=== PATIENT | male | born 1965 | race Caucasian/White ===

== ENCOUNTER 2018-02-19 08:29 | Day surgery (SDC) | payer BC ==
[~2018-02-19 08:29] MED LIST: Buffered Lidocaine 0.9% SYRIN* 5 ML/SYR SYRINGE INTRADERM ONE; Famotidine IV* 10 MG/ML 2 ML (20 mg) IV ONE; Metoclopramide TAB* 10 MG PO ONE
[2018-02-19] MEDS ORDERED: Famotidine IV* 10 MG/ML 2 ML (20 mg) ONE (08:40)
[2018-02-19] MEDS ORDERED: Metoclopramide TAB* 10 MG ONE (08:41)
[2018-02-19] MEDS ORDERED: Dexamethasone IV* 4 MG/ML 1 ML (4 MG) ONE (08:56)
[2018-02-19] MEDS ORDERED: Propofol* 10 MG/ML 20 ML BTL IV PUSH ONE (08:56)
[2018-02-19] MEDS ORDERED: Cisatracurium* 2 MG/ML MDV 5 ML ONE (08:56)
[2018-02-19] MEDS ORDERED: KETAMINE HCL* 50 MG/ML 10 ML VIAL ONE (08:56)
[2018-02-19] MEDS ORDERED: Midazolam* 1 MG/ML 5 ML VIAL (5 MG) ONE (08:56)
[2018-02-19] MEDS ORDERED: Lidocaine 2% PF * 5 ML VIAL ONE (08:56)
[2018-02-19] MEDS ORDERED: fentaNYL* 50 MCG/ML 2 ML VIAL (100 MCG VIAL) ONE (08:56)
[2018-02-19] MEDS ORDERED: Ketorolac INJ* 30 MG/ML 1 ML VIAL ONE (08:56)
[2018-02-19] MEDS ORDERED: Neostigmine Methylsulfate* 2 MG/2 ML SYRINGE ONE (09:03)
[2018-02-19] MEDS ORDERED: Glycopyrrolate IV* 0.2 MG/ML 1 ML VIAL ONE (09:03)
[2018-02-19] MEDS ORDERED: HYDROmorphone INJ* 0.5 MG/0.5 ML SYRINGE ONE (09:20)
[2018-02-19] MEDS ORDERED: ceFAZolin 2 GM PREMIX (*) 2 GM/50 ML BAG IVPB ONE (09:45)
[2018-02-19] MEDS ORDERED: Bupivacaine 0.25% W/EPI* 10 ML SDV ONE (09:52)
[2018-02-19] MEDS ORDERED: EPHEDrine (Pressors)* 50 MG/ML VIAL ONE (10:21)
[2018-02-19] MEDS ORDERED: Naloxone* 0.4 MG/ML 1 ML VIAL IV PRN (10:43)
[2018-02-19] MEDS ORDERED: Ondansetron INJ* 2 MG/ML VIAL IV PRN (10:43)
[2018-02-19] MEDS ORDERED: oxyCODONE/Acetamin 5/325 MG* TAB PO PRN (10:43)
[2018-02-19] MEDS ORDERED: fentaNYL* 50 MCG/ML 2 ML VIAL (100 MCG VIAL) IV PRN (10:43)
[2018-02-19] MEDS ORDERED: DiMENhydriNATE IV* 50 MG/ML VIAL ONE (10:49)
[2018-02-19] MEDS ORDERED: oxyCODONE/Acetamin 5/325 MG* TAB ONE (11:39)
[2018-02-19 11:48] VITALS: BP 147/84
--- NOTE | 2018-02-20 00:41 | OP ---
CC: Dr. Mick Del Rosario; Dr. Carroll Demarco * DATE OF OPERATION: 02/19/18 - [facility] DATE OF : 61 SURGEON: Mick Del Rosario MD PHLEBOTOMY INSTRUCTOR: Radha Pittman NP ANESTHESIOLOGIST: Dr. Garrett. ANESTHESIA: General anesthetic, local infiltration. PRE-OP DIAGNOSIS: Right inguinal hernia. POST-OP DIAGNOSIS: Right inguinal hernia. OPERATIVE PROCEDURE: Laparoscopic repair of right inguinal hernia. DESCRIPTION OF PROCEDURE: The patient was supine on the operating room table. After adequate general anesthetic, compression stockings, Emilio Hugger warmer, and intravenous antibiotics, the abdomen was clipped and prepped with antiseptic , draped in a sterile fashion. Local infiltrative anesthesia was administered and infraumbilical incision was created and carried down to the extraperitoneal plane. The balloon dissector was inserted and inflated under direct vision limiting it to the right side. Additional cannulae, 5 mm subxiphoid and left lower quadrant were placed through small stab wounds under direct vision. The preperitoneal space was developed on the right side. The pubic tubercle and the Jayjay's ligament were readily identified as was the inferior epigastric vessels. The hernia sac was dissected free from the cord structures and dissected well out of the way and then a medium sized right-sided hernia patch was chosen, placed into the abdominal cavity and Heifitz clips were used to secure it to the Jayjay's to the anterior musculature laterally. He tolerated this well. Pneumoperitoneum was allowed to escape and the umbilical fascia was closed with 0 Vicryl followed by 5-0 Vicryl in all cases and followed by Steri- Strips. He tolerated the procedure well, was awakened and brought to Recovery in good condition. No complications. No drains. No pathologic specimens. Sponge and instrument counts were correct. Estimated blood loss 10 mL. [id number]/[facility] #: [id number] [facility]
== END 2018-02-19 12:10 | disposition home or self-care (01) ==
LOC: OR 08:29
PROVIDERS: ATTEND Surgery
DX: K40.90 Unilateral inguinal hernia, without obstruction or gangrene, not specified as recurrent (principal); Z72.0 Tobacco use; M19.90 Unspecified osteoarthritis, unspecified site; Z88.0 Allergy status to penicillin
CPT/HCPCS: A9270-GY; C1781; J0690; J1100; J1170; J1240; J1885; J2250; J2704; J3010

== ENCOUNTER 2023-06-08 16:28 | Inpatient (IN) ==
[2023-06-08] MEDS ORDERED: Ondansetron ODT 4 mg TAB 4 MG TAB PO ONE (16:50)
[2023-06-08 17:42] LABS: ABS Basophils 0.1 10^3/uL (0.0-0.1); ABS Lymphocytes 1.4 10^3/uL (1.0-4.8); ABS Monocytes 0.8 10^3/uL (0.0-1.1); ABS Neutrophils 7.8 10^3/uL (1.5-7.6); Eosinophil % 0.2 %; Hemoglobin 15.5 g/dL (13.2-16.3); Lymphocyte % 13.4 %; Mean Corpuscular Hemoglobin 33.7 pg (27-33); Mean Corpuscular Hgb Conc 34.5 g/dL (31-36); Mean Corpuscular Volume 97.9 fL (80-97); Mean Platelet Volume 7.1 fL (7.5-11.2); Platelet Count 345 10^3/uL (150-450); Red Cell Distribution Width 13.8 % (12-17); White Blood Count 10.1 10^3/uL (3.6-10.2)
[2023-06-08 17:50] LABS: Albumin 4.1 g/dL (3.2-5.2); Albumin/Globulin Ratio 1.4 (1-3); C Reactive Protein 4.83 mg/L (<8.01); Calcium 9.2 mg/dL (8.6-10.3); Creatinine, Serum 0.76 mg/dL (0.67-1.17); Globulin 2.9 g/dL (2-4); Potassium 4.5 mmol/L (3.5-5.0); Total Bilirubin 0.6 mg/dL (0.2-1.0); eGFR CKD-EPI 103.5 (>60)
[2023-06-08] MEDS ORDERED: Iohexol 350 (CONTRAST) 500 ML MDV IV ONE (17:57)
[2023-06-08] MEDS ORDERED: Morphine 4 MG/ML VIAL (1 ml) IV ONE ×2 (19:45→22:41)
[2023-06-08] MEDS ORDERED: HYDROmorphone 1 MG/1 ML SYRINGE IV SLOW PU PRN (22:46)
[2023-06-08] MEDS: Lactated Ringers 1000 ml BAG 1,000 ML IV SCH (22:51)
[2023-06-08] MEDS ORDERED: HYDROmorphone 1 MG/1 ML SYRINGE IV PRN (22:54)
[2023-06-08] MEDS ORDERED: Naloxone 0.4 mg VIAL 0.4 mg/ml 1 ml VIAL IV PRN (22:54)
[2023-06-08] MEDS ORDERED: fentaNYL 100 mcg/2 ml 50 MCG/ML VIAL IV PRN (22:54)
[2023-06-08] MEDS ORDERED: oxyCODONE/Acetamin 5/325 mg TAB PO PRN (22:54)
[2023-06-08] MEDS ORDERED: metroNIDAZOLE IV 500 MG/100ML 100 ML IVPB ONE (23:00)
[2023-06-08] MEDS ORDERED: GENTAMICIN ADULT IVPB ONE (23:00)
[2023-06-08] MEDS ORDERED: NS 0.9% IVPB ONE (23:00)
[2023-06-08] MEDS ORDERED: fentaNYL 100 mcg/2 ml 50 MCG/ML VIAL ONE (23:05)
[2023-06-08] MEDS ORDERED: Lidocaine 2% PF 5 ML VIAL ONE (23:05)
[2023-06-08] MEDS ORDERED: Succinylcholine 200 mg VIAL 20 mg/ml 10 ml VIAL (200 mg) ONE (23:05)
[2023-06-08] MEDS ORDERED: Rocuronium 50 mg VIAL 10 mg/ml 5 ml VIAL (50 mg) ONE (23:05)
[2023-06-08] MEDS ORDERED: Propofol 10 MG/ML 20 ML BTL ONE (23:05)
[2023-06-08] MEDS ORDERED: Bupivacaine 0.5% SDV PF 30ML VIAL ONE (23:30)
[2023-06-09] MEDS ORDERED: Lidocaine 1% w EPI 1:100,000 MDV 20 ML VIAL ONE (00:06)
[2023-06-09] MEDS ORDERED: HYDROmorphone 0.5 MG/0.5 ML SYRINGE ONE (00:30)
[2023-06-09] MEDS ORDERED: Phenylephrine 40 mcg/mL 10mL (400mcg) SYRINGE ONE (00:46)
[2023-06-09] MEDS ORDERED: Ondansetron 4 mg VIAL 2 MG/ML 2 ml VIAL ONE (00:50)
[2023-06-09] MEDS ORDERED: HYDROmorphone 1 MG/1 ML SYRINGE IV SLOW PU PRN (01:21)
[2023-06-09] MEDS ORDERED: HYDROmorphone 1 MG/1 ML SYRINGE ONE (01:46)
[2023-06-09] MEDS: Lactated Ringers 1000 ml BAG 1,000 ML IV SCH (02:21)
[2023-06-09] MEDS ORDERED: Magnesium Hydroxide LIQ 30 ML UDC PO PRN (16:29)
[2023-06-10] MEDS ORDERED: Enoxaparin 40 MG/0.4 ML SYR SUBCUT SCH (08:00)
[2023-06-10 09:59] VITALS: BP 148/81
== END 2023-06-10 13:40 | disposition home or self-care (01) | DRG 227 ==
LOC: ED 16:28 → EDHOLD 22:46 → AA 23:15 → SSU 06-09 02:32
PROVIDERS: ADMIT Surgery; ATTEND Surgery